=== PATIENT | female | born 1985 | race Caucasian/White ===

== ENCOUNTER 2017-04-26 12:10 | Emergency (ER) | payer BC ==
[~2017-04-26] VITALS: Ht 180.3 cm; Wt 68.9 kg
[~2017-04-26 12:10] MED LIST: AMOX500C3 PO
[2017-04-26 12:17] VITALS: TEMP 36.8; Ht 180.3 cm; Wt 68.9 kg
[2017-04-26] MEDS ORDERED: VLM5CL PO (12:36)
[2017-04-26 12:59] LABS: URINE APPEARANCE CLEAR (CLEAR); URINE BILIRUBIN NEG (NEG); URINE COLOR YELLOW; URINE NITRITE NEG (NEG); URINE PH 6.5 (4.5-7.5); URINE SPECIFIC GRAVITY 1.011 (1.000-1.030); UROBILINOGEN NEG (NEG)
[2017-04-26 13:15] LABS: MANUAL MICROSCOPIC REQUIRED? NO; REVIEW REQ? NO
--- NOTE | 2017-04-26 13:16 | DIAGNOSTIC IMAGING REPORT ---
CHEST ONE VIEW PORTABLE CLINICAL HISTORY: Mood Disorder mental status change COMPARISON STUDY: No previous studies for comparison. FINDINGS: The bones soft tissues and hemidiaphragms are normal. The cardiomediastinal silhouette is normal. The lungs are clear. The pulmonary vasculature is normal. IMPRESSION: Negative chest. Electronically signed by: Venancio Richey M.D. 04/26/2017 1:15 PM Dictated Date/Time: 04/26/2017 1:14 PM
[2017-04-26 13:22] LABS: BASO % 0.2 %; BASO ABS # 0.02 K/uL (0-0.2); COMPLETE YES; EOS % 0.1 %; HEMATOCRIT 40.1 % (37-47); IG% 0.2 %; LYMPH % 21.2 %; LYMPH ABS # 1.86 K/uL (1.2-3.4); MEAN CELL VOLUME 89.3 fL (80-100); MEAN CORPUSCULAR HEMOGLOBIN 30.1 pg (25-34); MEAN CORPUSCULAR HGB CONC 33.7 g/dl (32-36); MEAN PLATELET VOLUME 9.7 fL (7.4-10.4); MONO % 6.6 %; NEUT % 71.7 %; PLATELET COUNT 237 K/uL (130-400); RED BLOOD COUNT 4.49 M/uL (4.2-5.4); WHITE BLOOD COUNT 8.76 K/uL (4.8-10.8)
[2017-04-26 13:25] LABS: BENZODIAZEPINE, URINE POS (NEG); COCAINE,URINE NEG (NEG); PHENCYCLIDINE, URINE NEG (NEG)
[2017-04-26 13:46] LABS: BUN/CREATININE RATIO 10.9 (10-20); CALCIUM 8.9 mg/dl (8.5-10.1); CREATININE 0.7 mg/dl (0.60-1.20); POTASSIUM 4.2 mmol/L (3.5-5.1)
[2017-04-26 13:47] LABS: ACETAMINOPHEN < 2 ug/ml (10-30)
--- NOTE | 2017-04-26 17:10 | EMERGENCY ROOM VISIT NOTE ---
History Report prepared by South: Marlen Oleary Under the Supervision of: Dr. José Miguel Terrell D.O. First contact with patient: 12:42 Chief Complaint: MENTAL HEALTH EVALUATION Stated Complaint: OD History of Present Illness The patient is a 31 year old female who presents to the Emergency Room for a mental health evaluation after an episode of an overdose beginning 1 hour ago. The patient states that her and her had a fight this morning and shortly after he left she took 10mg of Valium and 100mg of Trazodone. She notes that she also had one glass of wine and took the pills with the intent to "not deal with all of the things going on". She states that she was thinking about killing herself and she notes that she has been dealing with her fathers . The patient states that she is prescribed Valium and Trazodone. She took lexapro this morning as normally prescribed. She reports that she sees a therapist once a week but it is not enough and is agreeable to being seen inpatient. Pt denies headache, fevers, chest pain, shortness of breath, nausea, vomiting, diarrhea, and pain with urination. Source of History: patient Onset: 1 hour ago Position: other (mental health) Quality: other (overdose) Timing: other (episode) Associated Symptoms: No fevers, No headache, No chest pain, No SOB, No nausea, No vomiting, No urinary symptoms Note: Pt admits to suicidal ideation. Review of Systems See HPI for pertinent positives & negatives. A total of 10 systems reviewed and were otherwise negative. Past Medical & Surgical Medical Problems: (1) No known allergies (2) No significant past medical history Family History No pertinent family history stated. Social History Smoking Status: Current Every Day Smoker Marital Status: single Housing Status: lives with significant other Occupation Status: employed Current/Historical Medications Scheduled Diazepam (Diazepam), 5 MG PO TID Escitalopram Oxalate (Escitalopram Oxalate), 10 MG PO DAILY Scheduled PRN Ibuprofen (Advil), 200-800 MG PO Q6H PRN for Pain Trazodone Hcl (Trazodone), 50 MG PO DAILY PRN for Anxiety/Agitation Allergies Coded Allergies: No Known Allergies (Unverified , 04/26/17) Physical Exam Vital Signs Date Time Temp Pulse Resp B/P (MAP) Pulse Ox O2 Delivery O2 Flow Rate FiO2 6/25/17 15:42 98 18 110/67 96 Room Air 04/26/17 14:40 83 96 04/26/17 14:30 103/68 04/26/17 14:10 64 97 04/26/17 14:00 100/68 04/26/17 13:40 71 18 96 04/26/17 13:31 103/66 04/26/17 13:10 85 23 98 04/26/17 13:01 108/73 04/26/17 12:40 67 18 97 04/26/17 12:31 118/69 04/26/17 12:30 72 04/26/17 12:17 36.8 72 18 134/83 100 Room Air 04/26/17 12:13 134/83 Physical Exam GENERAL: sitting up in bed, tearful, alert, well appearing, well nourished, no distress, non-toxic EYE EXAM: conjunctival injection, PERRL and EOM's grossly intact OROPHARYNX: no exudate, no erythema, lips, buccal mucosa, and tongue normal and mucous membranes are moist NECK: supple, no nuchal rigidity, no adenopathy, non-tender LUNGS: Clear to auscultation. Normal chest wall mechanics HEART: no murmurs, S1 normal and S2 normal ABDOMEN: abdomen soft, non-tender, normo-active bowel sounds, no masses, no rebound or guarding. BACK: Back is symmetrical on inspection and there is no deformity, no midline tenderness, no CVA tenderness. SKIN: no rashes and no bruising UPPER EXTREMITIES: upper extremities are grossly normal. LOWER EXTREMITIES: No pitting edema. NEURO EXAM: Normal sensorium, cranial nerves II-XII grossly intact, normal speech, no gross weakness of arms, no gross weakness of legs. PSYCH: Admits to depression with suicide attempt. Medical Decision & Procedures ER Provider Diagnostic Interpretation: Radiology results as stated below per my review and the radiologist's interpretation: CHEST ONE VIEW PORTABLE FINDINGS: The bones soft tissues and hemidiaphragms are normal. The cardiomediastinal silhouette is normal. The lungs are clear. The pulmonary vasculature is normal. IMPRESSION: Negative chest. Electronically signed by: Venancio Richey M.D. 04/26/2017 1:15 PM Dictated Date/Time: 04/26/2017 1:14 PM Laboratory Results 04/26/17 13:05 Red Blood Count 4.49, Mean Corpuscular Volume 89.3, Mean Corpuscular Hemoglobin 30.1, Mean Corpuscular Hemoglobin Concent 33.7, Mean Platelet Volume 9.7, Neutrophils (%) (Auto) 71.7, Lymphocytes (%) (Auto) 21.2, Monocytes (%) (Auto) 6.6, Eosinophils (%) (Auto) 0.1, Basophils (%) (Auto) 0.2, Neutrophils # (Auto) 6.27, Lymphocytes # (Auto) 1.86, Monocytes # (Auto) 0.58, Eosinophils # (Auto) 0.01, Basophils # (Auto) 0.02 04/26/17 13:05 Test 04/26/17 12:30 04/26/17 13:05 Urine Color YELLOW Urine Appearance CLEAR (CLEAR) Urine pH 6.5 (4.5-7.5) Urine Specific [place] 1.011 (1.000-1.030) Urine Protein NEG (NEG) Urine Glucose (UA) NEG (NEG) Urine Ketones NEG (NEG) Urine Occult Blood NEG (NEG) Urine Nitrite NEG (NEG) Urine Bilirubin NEG (NEG) Urine Urobilinogen NEG (NEG) Urine Leukocyte Esterase NEG (NEG) Urine Opiates Screen NEG (NEG) Urine Methadone, Qualitative NEG (NEG) Urine Barbiturates NEG (NEG) Urine Phencyclidine (PCP) Level NEG (NEG) Ur Amphetamine/Methamphetamine NEG (NEG) MDMA (Ecstasy) Screen NEG (NEG) Urine Benzodiazepines Screen POS (NEG) Urine Cocaine Metabolite NEG (NEG) Urine Marijuana (THC) NEG (NEG) White Blood Count 8.76 K/uL (4.8-10.8) Red Blood Count 4.49 M/uL (4.2-5.4) Hemoglobin 13.5 g/dL (12.0-16.0) Hematocrit 40.1 % (37-47) Mean Corpuscular Volume 89.3 fL (80-100) Mean Corpuscular Hemoglobin 30.1 pg (25-34) Mean Corpuscular Hemoglobin Concent 33.7 g/dl (32-36) Platelet Count 237 K/uL (130-400) Mean Platelet Volume 9.7 fL (7.4-10.4) Neutrophils (%) (Auto) 71.7 % Lymphocytes (%) (Auto) 21.2 % Monocytes (%) (Auto) 6.6 % Eosinophils (%) (Auto) 0.1 % Basophils (%) (Auto) 0.2 % Neutrophils # (Auto) 6.27 K/uL (1.4-6.5) Lymphocytes # (Auto) 1.86 K/uL (1.2-3.4) Monocytes # (Auto) 0.58 K/uL (0.11-0.59) Eosinophils # (Auto) 0.01 K/uL (0-0.5) Basophils # (Auto) 0.02 K/uL (0-0.2) RDW Standard Deviation 41.3 fL (36.4-46.3) RDW Coefficient of Variation 12.6 % (11.5-14.5) Immature Granulocyte % (Auto) 0.2 % Immature Granulocyte # (Auto) 0.02 K/uL (0.00-0.02) Anion Gap 8.0 mmol/L (3-11) Est Creatinine Clear Calc Drug Dose 129.0 ml/min Estimated GFR () 135.7 Estimated GFR (Non- 117.1 BUN/Creatinine Ratio 10.9 (10-20) Bedside Glucose 78 mg/dl (70-90) Calcium Level 8.9 mg/dl (8.5-10.1) Total Bilirubin 0.5 mg/dl (0.2-1) Direct Bilirubin 0.2 mg/dl (0-0.2) Aspartate Amino Transf (AST/SGOT) 13 U/L (15-37) Alanine Aminotransferase (ALT/SGPT) 16 U/L (12-78) Alkaline Phosphatase 39 U/L (45-117) Total Protein 7.0 gm/dl (6.4-8.2) Albumin 4.1 gm/dl (3.4-5.0) Salicylates Level 2.2 mg/dl (2.8-20) Acetaminophen Level < 2 ug/ml (10-30) Ethyl Alcohol mg/dL 26.0 mg/dl (0-3) Laboratory results per my review. ECG Indication: toxicologic Rate (beats per minute): 65 Rhythm: sinus rhythm Findings: no ectopy, other (normal axis, normal intervals) ED Course ED COURSE: Vital signs were reviewed and showed tachycardia The patients medical record was reviewed The above diagnostic studies were performed and reviewed. ED treatments and interventions as stated above. 1242: The patient was evaluated in room B4. A complete history and physical examination was performed. 1256: I discussed admission with the . 1309: I spoke to [facility] poison control. They report that she should be watched for 4 hours. 1513: I spoke to poison control. The patient is cleared and will be evaluated by case management. 1542: I had a long discussion with the patient. She is agreeable to a 201. 1804: Upon reevaluation, the patient is doing well.I discussed my findings with the patient and she understands and agrees with the treatment plan. The patient will be signed out to Dr. Joseph at change of shift. Medical Decision Differential diagnosis: Etiologies such as toxicologic, infection, hypoglycemia, electrolyte abnormalities, cardiac sources, intracerebral event, neurologic, as well as others were entertained. Medication Reconciliation: I attest that I have personally reviewed the patient' s current medication list. Blood pressure screening: Patient was found to have an elevated blood pressure and was referred to their primary doctor for recheck and further treatment. Patient is a 31-year-old female who presents the ER following taking 10 mg of Valium and 100 mg trazodone. She was hysterical and she notes that she is right worked up secondary to her father's . She has been having trouble dealing with this and multiple other issues. She admits that she took this medication and ordered to harm herself/kill herself. She does see a therapist. She does admitted to a small glass of wine while taking these medications. I discussed her case with poison control. She is medically cleared at 3 PM. Patient is agreeable to come in on a 201. Boyfriend is at bedside. Bed search and will continue and patient was signed out to Dr. Joseph awaiting placement. Impression Primary Impression: Mood disorder Additional Impression: Suicidal ideation Scribe Attestation The scribe's documentation has been prepared under my direction and personally reviewed by me in its entirety. I confirm that the note above accurately reflects all work, treatment, procedures, and medical decision making performed by me. Departure Information Dispostion Still a Patient Referrals No Doctor, Assigned (PCP) Forms HOME CARE DOCUMENTATION FORM, IMPORTANT VISIT INFORMATION Patient Instructions My [facility] Problem Qualifiers
--- NOTE | 2017-04-26 20:50 | EMERGENCY ROOM VISIT NOTE ---
ED Visit Note First contact with patient: 18:08 The mental health worker advise me that the patient was unable to be placed tonight. The patient will stay overnight and bed search will continue tomorrow. The patient is on a voluntary commitment. There is no 302 or petitioning statements. 22:18 the patient decided that she did not want to stay overnight. I spoke with the patient and she is currently not suicidal. The boyfriend is with the patient and will be with her and they both feel comfortable going home. She does see a therapist. She will follow-up with a therapist. She is felt to be stable for discharge.
[2017-04-26 22:29] VITALS: BP 128/76; PULSE 78; O2SAT 98
[2017-04-29 12:38] LABS: HYDROXYETHYLFLURAZEPAM CONF NEGATIVE NG/ML (CUTOFF=50); HYDROXYMIDAZOLAM NEGATIVE NG/ML (CUTOFF=50); HYDROXYTRIAZOLAM CONF NEGATIVE NG/ML (CUTOFF=50); TEMAZEPAM CONF 303 NG/ML (CUTOFF=50)
[2017-07-08] MEDS ORDERED: IBUP-1050 PO (06:43)
[2017-07-08] MEDS ORDERED: TRAZ50TA35 PO (12:36)
[2017-07-08] MEDS ORDERED: LXP10 PO (12:36)
[2017-09-08] MEDS ORDERED: VORT10TA12 PO (12:19)
[2017-09-08] MEDS ORDERED: OXYC1TAB3 PO (15:38)
== END 2017-04-26 22:30 | disposition home or self-care (01) ==
LOC: EDBD 12:10 → C.EDB 12:16 → C.EDA 22:30
DX: F39 Unspecified mood [affective] disorder (principal); R45.851 Suicidal ideations; F17.200 Nicotine dependence, unspecified, uncomplicated

== ENCOUNTER → 2017-05-11 | Outpatient (CLI) | payer BC ==
[~2017-05-11] MED LIST changes: -AMOX500C3 PO; +BIOT1CAP8 PO; +FIBER GUMMY PO; +IBUP-1050 PO; +LXP10 PO; +MULT-513 PO; +OXYC1TAB3 PO; +TRAZ50TA35 PO; +VLM5CL PO
== END | disposition home or self-care (01) ==
LOC: C.LABSPEC 14:14
PROVIDERS: ATTEND Physician Assistant
DX: N89.8 Other specified noninflammatory disorders of vagina (principal)

== ENCOUNTER → 2017-05-26 | Outpatient (CLI) | payer BC | END | disposition home or self-care (01) | LOC: C.LABSPEC 14:55 | PROVIDERS: ATTEND Physician Assistant | DX: A49.02 Methicillin resistant Staphylococcus aureus infection, unspecified site (principal) ==

== ENCOUNTER 2017-07-08 19:03 | Emergency (ER) | payer BC ==
[~2017-07-08] VITALS: Ht 180.3 cm; Wt 71.8 kg
[~2017-07-08 19:03] MED LIST changes: -BIOT1CAP8 PO; -FIBER GUMMY PO; -MULT-513 PO; -OXYC1TAB3 PO
[2017-07-08 19:12] VITALS: TEMP 36.7; Ht 180.3 cm; Wt 71.8 kg
--- NOTE | 2017-07-08 19:22 | EMERGENCY ROOM VISIT NOTE ---
History First contact with patient: 19:13 Chief Complaint: RECTAL PAIN Stated Complaint: EBENEZER-ANAL FISTULA PAIN History of Present Illness The patient is a 32 year old female with significant Hx of perianal abscess and anal fistulas who presents to the Emergency Room with complaints of ebenezer anal pain. Severity 7.5/10. Worse with bowel movements and sitting down. 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 At that time is was lanced by Dr Morris. She works in [employer] but lives in [place] so followed up with a surgeon there - initially without any further intervention but she continued to have pain. She then had a second opinion with Dr Juany Ferrell in [place], [place] and was diagnosed with anal fistula. She reportedly has had multiple surgeries due to fistula formation. Workup for inflammatory bowel disease was negative with colonoscopy. Her last operation for her fistula was in April 2017. For the last month since recovering for that surgery is the best she has been for 2 years. However for the last week her ebenezer -anal pain has been getting progressively worse again to the point where it is now as bad as she was having before her last surgery. Associated with diarrhea which has been making her pain worse. She denies any fevers or chills. She is currently on her period therefore no chance of . Review of Systems Constitutional: No fever, No chills Respiratory: No cough, No shortness of breath Cardiovascular: No chest pain Abdomen: + diarrhea, No pain, No nausea Musculoskeletal: No joint pain, No muscle pain Genitourinary - Female: No dysuria, No urinary frequency, No urinary urgency , No urinary incontinence, No urinary retention Hematologic / Lymphatic: No abnormal bleeding/bruising Integumentary: No rash, No itch Past Medical/Surgical History Medical Problems: (1) No known allergies (2) No significant past medical history Social History Smoking Status: Current Every Day Smoker Marital Status: single Housing Status: lives with significant other Occupation Status: employed Current/Historical Medications Scheduled Biotin (Biotin), 1 TAB PO DAILY Escitalopram Oxalate (Escitalopram Oxalate), 10 MG PO DAILY Multivitamins/Minerals (Mvi With Minerals), 1 TAB PO DAILY [Fiber Gummy], 1 TAB PO DAILY Scheduled PRN Ibuprofen (Advil), 600-800 MG PO Q6H PRN for Pain Oxycodone Ir (Roxicodone Ir), 1-2 TAB PO Q4H PRN for Severe Pain Trazodone Hcl (Trazodone), 50 MG PO DAILY PRN for Sleep Physical Exam Vital Signs Date Time Temp Pulse Resp B/P (MAP) Pulse Ox O2 Delivery O2 Flow Rate FiO2 07/08/17 22:59 62 18 108/62 96 Room Air 07/08/17 21:26 62 18 104/65 93 Room Air 07/08/17 19:12 36.7 82 18 115/79 98 Room Air Physical Exam General Appearance: WD/WN, + moderate distress (from perianal pain) Respiratory/Chest: chest non-tender, lungs clear, normal breath sounds, no respiratory distress, no accessory muscle use Cardiovascular: regular rate, rhythm, no murmur, normal peripheral pulses Abdomen / GI: normal bowel sounds, non tender, soft, + pertinent finding ( rectal area examined with RN as chapnilda, left lateral area 1cm from anal sphincter erythematous and very painful to palpation without discharge, some fluctuance but no definitive collection underneath.) Extremities: normal capillary refill Neurologic/Psych: hospital superintendent II-XII nml as tested (no facial droop), no motor/ sensory deficits (grossly), alert, oriented x 3 Medical Decision & Procedures ER Provider Diagnostic Interpretation: CT OF THE ABDOMEN AND PELVIS WITH CONTRAST CLINICAL HISTORY: Anal/rectal pain. Evaluate for fistula or abscess. COMPARISON STUDY: CT of the pelvis January 29, 2016. TECHNIQUE: Following IV administration of 115 mL of [id number]-[id number], axial images of the abdomen and pelvis were obtained from the lung bases to the proximal femurs. Images were reviewed in the axial, sagittal, and coronal planes. IV contrast was administered without complication. A dose lowering technique was utilized adhering to the principles of ALARA. Oral contrast was administered. CT DOSE: 353.61 mGy.cm FINDINGS: The liver, spleen, adrenal glands, kidneys and pancreas are normal. There is no biliary or pancreatic ductal dilatation. There is no hydronephrosis. Caliber and wall thickness of small and large bowel are normal. The appendix is normal. No abscess is identified within the abdomen or pelvis. There is soft tissue thickening within the left perianal region at site of abscess shown on exam of January 29, 2016. However, no fluid collection is identified on this exam to suggest an abscess. There is a linear tract which extends to the medial fold of the left buttock shown best on axial image 462 of 516. This could reflect a small fistula. There is no associated abscess. Skeletal structures are unremarkable. IMPRESSION: 1. No perianal/perirectal abscess. Left perianal/perineal soft tissue thickening which could reflect a perianal fistula or scarring. Additional linear tract which extends to the medial fold of the left buttock suggests a small fistula. 2. Normal appendix. No bowel obstruction. Electronically signed by: Bran Pendleton M.D. 07/08/2017 10:37 PM Dictated Date/Time: 07/08/2017 10:29 PM Laboratory Results 07/08/17 19:25 Red Blood Count 4.28, Mean Corpuscular Volume 88.8, Mean Corpuscular Hemoglobin 30.4, Mean Corpuscular Hemoglobin Concent 34.2, Mean Platelet Volume 9.7, Neutrophils (%) (Auto) 53.2, Lymphocytes (%) (Auto) 37.5, Monocytes (%) (Auto) 7.7, Eosinophils (%) (Auto) 1.1, Basophils (%) (Auto) 0.4, Neutrophils # (Auto) 3.74, Lymphocytes # (Auto) 2.64, Monocytes # (Auto) 0.54, Eosinophils # (Auto) 0.08, Basophils # (Auto) 0.03 07/08/17 19:25 Test 07/08/17 19:25 White Blood Count 7.04 K/uL (4.8-10.8) Red Blood Count 4.28 M/uL (4.2-5.4) Hemoglobin 13.0 g/dL (12.0-16.0) Hematocrit 38.0 % (37-47) Mean Corpuscular Volume 88.8 fL (80-100) Mean Corpuscular Hemoglobin 30.4 pg (25-34) Mean Corpuscular Hemoglobin Concent 34.2 g/dl (32-36) Platelet Count 234 K/uL (130-400) Mean Platelet Volume 9.7 fL (7.4-10.4) Neutrophils (%) (Auto) 53.2 % Lymphocytes (%) (Auto) 37.5 % Monocytes (%) (Auto) 7.7 % Eosinophils (%) (Auto) 1.1 % Basophils (%) (Auto) 0.4 % Neutrophils # (Auto) 3.74 K/uL (1.4-6.5) Lymphocytes # (Auto) 2.64 K/uL (1.2-3.4) Monocytes # (Auto) 0.54 K/uL (0.11-0.59) Eosinophils # (Auto) 0.08 K/uL (0-0.5) Basophils # (Auto) 0.03 K/uL (0-0.2) RDW Standard Deviation 42.3 fL (36.4-46.3) RDW Coefficient of Variation 13.0 % (11.5-14.5) Immature Granulocyte % (Auto) 0.1 % Immature Granulocyte # (Auto) 0.01 K/uL (0.00-0.02) Anion Gap 8.0 mmol/L (3-11) Est Creatinine Clear Calc Drug Dose 103.3 ml/min Estimated GFR () 100.8 Estimated GFR (Non- 87.0 BUN/Creatinine Ratio 8.7 (10-20) Calcium Level 9.0 mg/dl (8.5-10.1) Total Bilirubin 0.2 mg/dl (0.2-1) Aspartate Amino Transf (AST/SGOT) 17 U/L (15-37) Alanine Aminotransferase (ALT/SGPT) 18 U/L (12-78) Alkaline Phosphatase 44 U/L (45-117) Total Protein 7.3 gm/dl (6.4-8.2) Albumin 4.0 gm/dl (3.4-5.0) Globulin 3.3 gm/dl (2.5-4.0) Albumin/Globulin Ratio 1.2 (0.9-2) Medications Administered Medications (Trade) Dose Ordered Sig/Jewel Route Start Time Stop Time Status Last Admin Dose Admin Sodium Chloride 1,000 ml @ 999 mls/hr Q1H1M IV 07/08/17 19:30 07/08/17 23:51 DC 07/08/17 19:38 999 MLS/HR Hydromorphone HCl (Dilaudid Inj) 0.5 mg NOW STAT IV 07/08/17 19:28 07/08/17 19:29 DC 07/08/17 19:38 0.5 MG Ondansetron HCl (Zofran Inj) 4 mg NOW STAT IV 07/08/17 19:28 07/08/17 19:29 DC 07/08/17 19:37 4 MG Hydromorphone HCl (Dilaudid Inj) 1 mg NOW STAT IV 07/08/17 20:10 07/08/17 20:13 DC 07/08/17 20:24 1 MG Sodium Chloride 1,000 ml @ 150 mls/hr Q6H40M IV 07/08/17 21:00 07/08/17 23:51 DC 07/08/17 21:00 150 MLS/HR Hydromorphone HCl (Dilaudid Inj) 1 mg NOW STAT IV 07/08/17 20:58 07/08/17 21:00 DC 07/08/17 21:22 1 MG Morphine Sulfate (MoRPHine SULFATE INJ) 2 mg STK-MED ONCE .ROUTE 07/08/17 22:03 07/08/17 22:04 DC 07/08/17 22:07 2 MG Morphine Sulfate (MoRPHine SULFATE INJ) 4 mg STK-MED ONCE .ROUTE 07/08/17 22:03 07/08/17 22:04 DC 07/08/17 22:07 4 MG Oxycodone HCl (Roxicodone Immediate Rel 5MG Home Pack) 1 homepack UD ONCE PO 07/08/17 23:15 07/08/17 23:16 DC 07/08/17 23:28 1 HOMEPACK ED Course 19:15 - Discussed case briefly with Dr Titus before seeing patient. Complete history and physical was performed by myself. 20:05 - Patient continued to have pain, worse with bowel movements - Dilaudid 1mg ordered 20:55 - Patient continued to have pain, worse with bowel movements - additional Dilaudid 1mg ordered 21:20 - Discussed case fully with Dr Titus who separately performed history and examination 21:53 - Patient continued to have pain - morphine 6mg IV ordered. 22:35 - Imaging and labs discussed with the patient. She elected for discharge home. Records were given to the patient for follow up with her surgeon in 8 days. Medical Decision Prior records/ancillary studies reviewed. Triage Nursing notes reviewed. Additional history obtained from patient. The patient's history was concerning for rectal pain. Differential diagnosis: Etiologies such as anal fistula, anal fissures, perianal abscess, inflammatory bowel disease, musculoskeletal, disc herniation, as well as others were entertained. Physical findings: As above. Pain consistent with erythema over previous operation site with possible fluctuance. ER treatment provided: Dilaudid 0.5mg, 1mg, 1mg IV Morphine 6mg IV Ondansetron 4mg IV NSS 1L bolus then 150 MLS/HR On reassessment the patient's pain had improved to 5/10 on discharge from maximum of 06/11. Diagnostics interpreted by me: The labs were unremarkable with a normal WBC Imaging studies: CT A/P with IV and oral contrast as above - No perianal/perirectal abscess. This appears to be consistent with previous scarring from operations and likely fistulas causing her pain. Given no fever, normal WBC and no abscess seen on CT she was not started on antibiotics and no blood cultures were taken. The patient informed about the findings as listed above. She was given the option of staying in hospital for intractable pain given amount of opiates given with only minimal relief of pain. However she wished to be discharged home and will control her pain with oxycodone. PDMP was reviewed and revealed no red flags, she did have a recent prescription for tramadol on 06/24/17 however last oxycodone use was 03/28/17 (40 pills prescribed by her surgeon).All questions were answered and she was pleased with the treatment. Return instructions were outlined and the patient was discharged in stable condition. She was given copies of her CT scan for follow up with her surgeon. She was advised to establish care with a primary care physician in the area and call her surgeons office with the results of the CT scan in the morning Outpatient prescription management: Oxy IR 5mg 1-2 po Q4 hrs prn #15 [place] Drug Monitoring Program Search Results: patient reviewed within database, no issues identified Medication Reconcilliation Current Medication List: was personally reviewed by me Blood Pressure Screening Patient's blood pressure: Normal blood pressure Impression Primary Impression: Anal fistula Departure Information Dispostion Home / Self-Care Condition FAIR Prescriptions Oxycodone Ir (Roxicodone Ir) 5 Mg Tab 1-2 TAB PO Q4H Y for Severe Pain, #15 TAB Prov: Carlitos Hylton MD 07/08/17 Referrals No Doctor, Assigned (PCP) Patient Instructions My [facility] Additional Instructions Take Ibuprofen or Tylenol (age and/or weight specific) as needed for pain, discomfort, and fevers. Drink more clear liquids for the next 3 to 4 days. If prescribed a prescription pain medication, take as directed for additional pain relief. Do not drink alcohol or drive while taking prescription pain medication. Make a follow-up appointment with your family doctor for continued care and treatment. Please call your surgeon with the CT report in the morning and arrange follow up as required. If you have an increasing pain, discomfort, fevers, rectal discharge or recurrent vomiting, come back to the Emergency Department. Resident Tracking Resident Involvement: Resident Care Provided Care Provided: Adult ED
[2017-07-08] MEDS ORDERED: HYDROmorphone INJ 0.5 MG/0.5 ML SYR IV STA (19:28)
[2017-07-08] MEDS ORDERED: ONDANSETRON INJ 2 MG/ML 2 ML VIAL IV STA (19:28)
[2017-07-08] MEDS ORDERED: OPTIRAY 320 IV PRN (19:30)
[2017-07-08] MEDS ORDERED: SODIUM CHLORIDE 0.9% 1000ML 1,000 ML IV SCH ×2 (19:30→21:00)
[2017-07-08 19:50] LABS: BASO % 0.4 %; BASO ABS # 0.03 K/uL (0-0.2); COMPLETE YES; EOS % 1.1 %; IG% 0.1 %; LYMPH % 37.5 %; LYMPH ABS # 2.64 K/uL (1.2-3.4); MEAN CELL VOLUME 88.8 fL (80-100); MEAN CORPUSCULAR HEMOGLOBIN 30.4 pg (25-34); MEAN CORPUSCULAR HGB CONC 34.2 g/dl (32-36); MEAN PLATELET VOLUME 9.7 fL (7.4-10.4); MONO % 7.7 %; NEUT % 53.2 %; PLATELET COUNT 234 K/uL (130-400); RED BLOOD COUNT 4.28 M/uL (4.2-5.4); WHITE BLOOD COUNT 7.04 K/uL (4.8-10.8)
[2017-07-08] MEDS ORDERED: MULT-513 PO (19:56)
[2017-07-08] MEDS ORDERED: BIOT1CAP8 PO (19:56)
[2017-07-08] MEDS ORDERED: FIBER GUMMY PO (19:56)
[2017-07-08 20:04] LABS: BUN/CREATININE RATIO 8.7 (10-20); CREATININE 0.89 mg/dl (0.60-1.20); POTASSIUM 3.7 mmol/L (3.5-5.1)
[2017-07-08 20:07] LABS: ALB/GLOB RATIO 1.2 (0.9-2)
[2017-07-08] MEDS ORDERED: HYDROmorphone INJ 1 MG/ML SYR IV STA ×2 (20:10→20:58)
[2017-07-08] MEDS ORDERED: MoRPHine SULFATE 10 MG/ML CARP/VIAL IV STA (21:58)
[2017-07-08] MEDS ORDERED: MoRPHine SULFATE 2 MG/ML CARP ONE (22:03)
[2017-07-08] MEDS ORDERED: MoRPHine SULFATE 4 MG/ML 1 ML CARP\\VIAL ONE (22:03)
--- NOTE | 2017-07-08 22:38 | DIAGNOSTIC IMAGING REPORT ---
CT OF THE ABDOMEN AND PELVIS WITH CONTRAST CLINICAL HISTORY: Anal/rectal pain. Evaluate for fistula or abscess. COMPARISON STUDY: CT of the pelvis January 29, 2016. TECHNIQUE: Following IV administration of 115 mL of [id number]-[id number], axial images of the abdomen and pelvis were obtained from the lung bases to the proximal femurs. Images were reviewed in the axial, sagittal, and coronal planes. IV contrast was administered without complication. A dose lowering technique was utilized adhering to the principles of ALARA. Oral contrast was administered. CT DOSE: 353.61 mGy.cm FINDINGS: The liver, spleen, adrenal glands, kidneys and pancreas are normal. There is no biliary or pancreatic ductal dilatation. There is no hydronephrosis. Caliber and wall thickness of small and large bowel are normal. The appendix is normal. No abscess is identified within the abdomen or pelvis. There is soft tissue thickening within the left perianal region at site of abscess shown on exam of January 29, 2016. However, no fluid collection is identified on this exam to suggest an abscess. There is a linear tract which extends to the medial fold of the left buttock shown best on axial image 462 of 516. This could reflect a small fistula. There is no associated abscess. Skeletal structures are unremarkable. IMPRESSION: 1. No perianal/perirectal abscess. Left perianal/perineal soft tissue thickening which could reflect a perianal fistula or scarring. Additional linear tract which extends to the medial fold of the left buttock suggests a small fistula. 2. Normal appendix. No bowel obstruction. Electronically signed by: Bran Pendleton M.D. 07/08/2017 10:37 PM Dictated Date/Time: 07/08/2017 10:29 PM
[2017-07-08] MEDS ORDERED: OXYC1TAB3 PO (22:58)
[2017-07-08 22:59] VITALS: BP 108/62; PULSE 62; O2SAT 96
--- NOTE | 2017-07-08 23:14 | EMERGENCY ROOM VISIT NOTE ---
ED Visit Note First contact with patient: 19:12 I saw the patient in conjunction with Dr. Hylton, third year resident. The patient presents with rectal pain. 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 She has had multiple surgeries. She presents today with symptoms consistent with a possible new perirectal abscess. Laboratory testing is unrevealing, she is not febrile or toxic. Abdominal and pelvis CT shows a fistula, no obvious abscess seen. The patient received IV pain control, she is more comfortable. She was offered admission/observation for symptom control but she would like to be discharged home. She was given copies of her records and she will follow with her surgeon as an outpatient. If she does have worsening symptoms or fever, she will return for reassessment. Diagnosis: Anal fistula. Severe rectal pain. History of perirectal abscess.
[2017-07-08] MEDS ORDERED: OXYCODONE IR HOME PACK PO ONE (23:15)
== END 2017-07-08 23:30 | disposition home or self-care (01) ==
LOC: C.EDB 19:06 → C.EDC 23:30
DX: K60.3 Anal fistula (principal); F17.200 Nicotine dependence, unspecified, uncomplicated; Z79.899 Other long term (current) drug therapy

== ENCOUNTER → 2017-07-13 | Outpatient (CLI) | payer BC ==
[~2017-07-13] MED LIST changes: +BIOT1CAP8 PO; +FIBER GUMMY PO; +MULT-513 PO; +OXYC1TAB3 PO; -VLM5CL PO
== END | disposition home or self-care (01) ==
LOC: C.PAPS 11:21
PROVIDERS: ATTEND Physician Assistant
DX: Z01.419 Encounter for gynecological examination (general) (routine) without abnormal findings (principal)

== ENCOUNTER 2017-12-06 15:29 | Emergency (ER) | payer BC ==
[~2017-12-06] VITALS: Ht 180.3 cm; Wt 76.1 kg
[~2017-12-06 15:29] MED LIST changes: -FIBER GUMMY PO; -IBUP-1050 PO; +VORT10TA12 PO
[2017-12-06 15:33] VITALS: TEMP 37; Ht 180.3 cm; Wt 76.1 kg
[2017-12-06] MEDS ORDERED: LORAZEPAM 2 MG/ML 1 ML VIAL IV STA (16:20)
[2017-12-06] MEDS ORDERED: HYDR-389 PO (16:21)
--- NOTE | 2017-12-06 16:35 | DIAGNOSTIC IMAGING REPORT ---
CHEST ONE VIEW PORTABLE CLINICAL HISTORY: 32 years-old Female presenting with chest pain. TECHNIQUE: Portable upright AP view of the chest was obtained. COMPARISON: 09/08/2017. FINDINGS: Cardiomediastinal silhouette normal. Lungs and pleural spaces clear. Osseous structures normal. Upper abdomen normal. IMPRESSION: 1. No acute cardiopulmonary disease. Electronically signed by: Trevor Vasquez M.D. 12/06/2017 4:33 PM Dictated Date/Time: 12/06/2017 4:33 PM
--- NOTE | 2017-12-06 16:43 | EMERGENCY ROOM VISIT NOTE ---
History First contact with patient: 16:13 Chief Complaint: CHEST PAIN Stated Complaint: SEVERE CHEST PAIN, L SHOULDER PAIN Nursing Triage Summary: "I thought I was having a panic attack, i took one of my pills and it alleviated my nausea, but I am short of breath, tight in my chest and have shooting pain into my left shoulder". Pt verbalizes she normally feels this way when she has a panic attack. History of Present Illness The patient is a 32 year old female who presents to the Emergency Room via private vehicle with complaints of "severe chest pain, left shoulder pain". The patient states that she has a history of panic attacks, and states that earlier today she was in an argument with her boyfriend, and then developed chest pain which radiates to left shoulder, and shortness of breath. She denies exertional symptoms. She notes that she was laying on the couch when this developed. This began 1.5 hours prior to arrival. She rates the chest pain currently as a 8/10. She states that she has seen her psychiatrist recently and began upon hydroxyzine. She notes that she did have a recent surgery on November 06 which was a fistulotomy. She denies any history of clots, hormone use, recent fracture, hemoptysis. She rates her overall pain currently as an 8/10. Review of Systems A complete 10-point Review of Systems was discussed with the patient, with pertinent positives and negatives listed in the History of Present Illness. All remaining Review of Systems questions can be considered negative unless otherwise specified. Past Medical/Surgical History Medical Problems: (1) No known allergies (2) No significant past medical history Social History Smoking Status: Current Every Day Smoker Marital Status: single Housing Status: lives with significant other Occupation Status: employed Current/Historical Medications Scheduled Escitalopram Oxalate (Escitalopram Oxalate), 20 MG PO DAILY Scheduled PRN Hydroxyzine Hcl (Atarax), 10 MG PO DAILY PRN for Anxiety Oxycodone Ir (Roxicodone Ir), 1-2 TAB PO Q4H PRN for Pain Trazodone Hcl (Trazodone), 50 MG PO DAILY PRN for Sleep Physical Exam Vital Signs Date Time Temp Pulse Resp B/P (MAP) Pulse Ox O2 Delivery O2 Flow Rate FiO2 12/06/17 20:47 77 16 111/73 98 12/06/17 18:07 70 20 119/72 97 12/06/17 17:20 72 20 124/69 100 12/06/17 17:20 100 Room Air 12/06/17 16:59 67 12/06/17 15:33 Room Air 12/06/17 15:33 37.0 100 18 117/81 100 Room Air Physical Exam VITAL SIGNS - Vital signs and nursing notes were reviewed. Stable. GENERAL - 32-year-old female appearing her stated age who is in no acute distress. She does appear anxious. Communicates well with provider and answers questions appropriately. SKIN - Without rashes. HEAD - NC/AT. EYES - PERRL with EOMI bilaterally. Sclera anicteric. EARS - No deformities of external structures noted on gross examination bilaterally. NOSE - Midline and without cyanosis. No epistaxis or purulent drainage noted. MOUTH/OROPHARYNX - Without perioral cyanosis. LUNGS - Chest wall symmetric without accessory muscle use, intercostals retractions, or central cyanosis. Normal vesicular breath sounds CTA B/L. No wheezes, rales, or rhonchi appreciated. CARDIAC - RRR with S1/S2. No murmur, rubs, or gallops appreciated. Anterior chest pain reproducible with palpation. EXTREMITIES - No clubbing or peripheral cyanosis. No pretibial edema present. +5 /5 strength noted in UE/LE bilaterally. NEUROLOGIC - Cranial nerves II through XII grossly intact. Sensory intact to light touch throughout. PSYCH - A&O, and cooperates fully with examiner. Pt is very pleasant and interacts well with examiner. Medical Decision & Procedures ER Provider Diagnostic Interpretation: CHEST ONE VIEW PORTABLE CLINICAL HISTORY: 32 years-old Female presenting with chest pain. TECHNIQUE: Portable upright AP view of the chest was obtained. COMPARISON: 09/08/2017. FINDINGS: Cardiomediastinal silhouette normal. Lungs and pleural spaces clear. Osseous structures normal. Upper abdomen normal. IMPRESSION: 1. No acute cardiopulmonary disease. Electronically signed by: Trevor Vasquez M.D. 12/06/2017 4:33 PM Dictated Date/Time: 12/06/2017 4:33 PM Laboratory Results 12/06/17 16:00 Red Blood Count 4.43, Mean Corpuscular Volume 90.5, Mean Corpuscular Hemoglobin 30.5, Mean Corpuscular Hemoglobin Concent 33.7, Mean Platelet Volume 9.7, Neutrophils (%) (Auto) 39.5, Lymphocytes (%) (Auto) 50.1, Monocytes (%) (Auto) 7.4, Eosinophils (%) (Auto) 2.2, Basophils (%) (Auto) 0.6, Neutrophils # (Auto) 2.57, Lymphocytes # (Auto) 3.25, Monocytes # (Auto) 0.48, Eosinophils # (Auto) 0.14, Basophils # (Auto) 0.04 12/06/17 16:00 Test 12/06/17 16:00 12/06/17 17:00 12/06/17 19:54 White Blood Count 6.49 K/uL (4.8-10.8) Red Blood Count 4.43 M/uL (4.2-5.4) Hemoglobin 13.5 g/dL (12.0-16.0) Hematocrit 40.1 % (37-47) Mean Corpuscular Volume 90.5 fL (80-100) Mean Corpuscular Hemoglobin 30.5 pg (25-34) Mean Corpuscular Hemoglobin Concent 33.7 g/dl (32-36) Platelet Count 233 K/uL (130-400) Mean Platelet Volume 9.7 fL (7.4-10.4) Neutrophils (%) (Auto) 39.5 % Lymphocytes (%) (Auto) 50.1 % Monocytes (%) (Auto) 7.4 % Eosinophils (%) (Auto) 2.2 % Basophils (%) (Auto) 0.6 % Neutrophils # (Auto) 2.57 K/uL (1.4-6.5) Lymphocytes # (Auto) 3.25 K/uL (1.2-3.4) Monocytes # (Auto) 0.48 K/uL (0.11-0.59) Eosinophils # (Auto) 0.14 K/uL (0-0.5) Basophils # (Auto) 0.04 K/uL (0-0.2) RDW Standard Deviation 44.0 fL (36.4-46.3) RDW Coefficient of Variation 13.3 % (11.5-14.5) Immature Granulocyte % (Auto) 0.2 % Immature Granulocyte # (Auto) 0.01 K/uL (0.00-0.02) Prothrombin Time 9.9 SECONDS (9.0-12.0) Prothromb Time International Ratio 0.9 (0.9-1.1) Activated Partial Thromboplast Time 24.6 SECONDS (21.0-31.0) Partial Thromboplastin Ratio 0.9 Anion Gap 4.0 mmol/L (3-11) Est Creatinine Clear Calc Drug Dose 114.9 ml/min Estimated GFR () 114.7 Estimated GFR (Non- 98.9 BUN/Creatinine Ratio 12.8 (10-20) Calcium Level 9.3 mg/dl (8.5-10.1) Thyroid Stimulating Hormone (TSH) 1.870 uIu/ml (0.300-4.500) Urine Color YELLOW Urine Appearance CLEAR (CLEAR) Urine pH >= 9.0 (4.5-7.5) Urine Specific [place] 1.020 (1.000-1.030) Urine Protein NEG (NEG) Urine Glucose (UA) NEG (NEG) Urine Ketones NEG (NEG) Urine Occult Blood NEG (NEG) Urine Nitrite NEG (NEG) Urine Bilirubin NEG (NEG) Urine Urobilinogen NEG (NEG) Urine Leukocyte Esterase NEG (NEG) Urine Test NEG (NEG) Troponin I < 0.015 ng/ml (0-0.045) Medications Administered Medications (Trade) Dose Ordered Sig/Jewel Route Start Time Stop Time Status Last Admin Dose Admin Lorazepam (Ativan Inj) 1 mg NOW STAT IV 12/06/17 16:20 12/06/17 16:22 DC 12/06/17 17:17 1 MG Ketorolac Tromethamine (Toradol Inj) 30 mg NOW STAT IV 12/06/17 17:53 12/06/17 17:54 DC 12/06/17 18:05 30 MG Morphine Sulfate (MoRPHine SULFATE INJ) 4 mg NOW STAT IV 12/06/17 17:53 12/06/17 17:54 DC 12/06/17 18:06 4 MG Morphine Sulfate (MoRPHine SULFATE INJ) 4 mg NOW STAT IV 12/06/17 18:55 12/06/17 18:56 DC 12/06/17 19:19 4 MG Acetaminophen (Tylenol Tab) 650 mg NOW STAT PO 12/06/17 20:10 12/06/17 20:11 DC 12/06/17 20:18 650 MG Medical Decision Patient was seen and evaluated as above. Previous visit was reviewed. I personally treated the patient during her last visit for identical presentation. She is otherwise healthy, but does have recent fistulotomy procedure and underlying anxiety. She is nontoxic on exam. The anterior chest pain is reproducible with palpation of the anterior chest. This is reassuring. It began after an argument with her boyfriend. This seems to be a provoking event for the underlying anxiety. IV access was initiated, and the above workup was performed. During the patient's previous visit I did obtain a d- dimer, and CTA of the chest despite the normal d-dimer secondary to patient presentation. It was normal. Today, the patient is not short of breath upon my exam, and the pain is reproducible therefore I refrained from further workup for the pulmonary embolism as this is less likely. She is hemodynamically stable. Chest x-ray negative. Patient's bedside EKG per my interpretation reveals normal sinus rhythm without ectopy or ischemic change. She was initially given Ativan 1 mg to help control her anxiety. She notes that she felt less anxious but the pain persisted. She was given 4 mg of morphine, and 30 mg of Toradol. She was reevaluated and the pain persisted. She was given 4 mg of morphine. As well as 650 mg of Tylenol. She notes that the pain persists however it is persistently reproducible on exam. Initial and Repeat troponin was negative. CBC reveals no concerning leukocytosis or anemia. Coags are normal. Patient metabolic panel reveals slightly high carbon dioxide otherwise normal. Urine negative. The patient's presentation is most likely that of musculoskeletal etiology/underlying anxiety. I do recommend outpatient follow-up. She appears stable for outpatient management. Case was discussed with the attending physician. They were educated upon management, educated upon worrisome symptoms in which to return, had questions answered prior to discharge, and were discharged home in good condition. In evaluation treatment this patient the following differential diagnoses were obtained: PR, PE, peritonitis, costochondritis, anxiety, muscle strain, among others. Impression Primary Impression: Chest wall pain Departure Information Dispostion Home / Self-Care Condition GOOD Prescriptions Oxycodone Ir (Roxicodone Ir) 5 Mg Tab 1-2 TAB PO Q4H Y for Pain, #15 TAB For Initial Treatment Prov: Christian Francisco PA-C 12/06/17 Referrals Thuan Mederos III, M.D. (PCP) Patient Instructions My [facility] Additional Instructions You have been treated in the Emergency Department your chest wall Pain. Laboratory results and imaging studies have ruled out any emergent causes for your chest wall which would warrant admission or surgery. As we discussed, it is reassuring that the pain is reproducible with pressing the chest is this means it is likely musculoskeletal in nature. You have been prescribed oxycodone immediate release to be used for pain control. This is a narcotic medication. You cannot drive or consume alcohol while on this medicine. This medicine should only be used for pain that cannot be controlled with [id number] pain medicines. For pain control, you can use the following [id number] medicines (if >12 yo): - Regular strength (325mg/tab) Tylenol (acetaminophen) 2 tabs every 4-6 hours as needed. Do not exceed 12 tablets in a 24 hour period. Avoid taking more than 3 grams (3000 mg) of Tylenol per day. This includes any other sources of acetaminophen you may take on a regular basis. - Regular strength (200 mg/tab) Advil (ibuprofen) 1-2 tabs every 4-6 hours as needed. Do not exceed a dose of 3200 mg per day. Drink plenty of water and stay well hydrated. As with any trip to the Emergency Department, you should follow-up with your Primary Care Provider from today's visit. Return to the emergency department if your symptoms persist despite treatment plan outlined above or if the following symptoms occur: Increased pain, worsening shortness of breath, or any new/concerning symptoms.
[2017-12-06 17:10] LABS: HEMATOCRIT 40.1 % (37-47); HEMOGLOBIN 13.5 g/dL (12.0-16.0); MEAN CELL VOLUME 90.5 fL (80-100); MEAN CORPUSCULAR HEMOGLOBIN 30.5 pg (25-34); MEAN CORPUSCULAR HGB CONC 33.7 g/dl (32-36); MEAN PLATELET VOLUME 9.7 fL (7.4-10.4); PLATELET COUNT 233 K/uL (130-400); RED CELL DISTRIBUTION WIDTH CV 13.3 % (11.5-14.5); WHITE BLOOD COUNT 6.49 K/uL (4.8-10.8)
[2017-12-06 17:18] LABS: INR 0.9 (0.9-1.1); PTT PATIENT 24.6 SECONDS (21.0-31.0)
[2017-12-06 17:20] VITALS: O2SAT 100
[2017-12-06 17:28] LABS: BLOOD UREA NITROGEN 10 mg/dl (7-18); CALCIUM 9.3 mg/dl (8.5-10.1); CARBON DIOXIDE 33 mmol/L (21-32); GLUCOSE 86 mg/dl (70-99); POTASSIUM 4.7 mmol/L (3.5-5.1); SODIUM 141 mmol/L (136-145)
[2017-12-06 17:35] LABS: BASO % 0.6 %; BASO ABS # 0.04 K/uL (0-0.2); EOS % 2.2 %; EOS ABS # 0.14 K/uL (0-0.5); IG# 0.01 K/uL (0.00-0.02); LYMPH % 50.1 %; LYMPH ABS # 3.25 K/uL (1.2-3.4); MONO % 7.4 %; MONO ABS # 0.48 K/uL (0.11-0.59); NEUT % 39.5 %; NEUT ABS # 2.57 K/uL (1.4-6.5)
[2017-12-06] MEDS ORDERED: MoRPHine SULFATE 4 MG/ML 1 ML CARP\\VIAL IV STA ×2 (17:53→18:55)
[2017-12-06] MEDS ORDERED: KETOROLAC TROMETHAMINE 30 MG/ML VIAL IV STA (17:53)
[2017-12-06] MEDS ORDERED: ACETAMINOPHEN 325 MG TAB PO STA (20:10)
[2017-12-06] MEDS ORDERED: OXYC1TAB3 PO (20:27)
[2017-12-06 20:47] VITALS: BP 111/73; PULSE 77; O2SAT 98
== END 2017-12-06 20:49 | disposition home or self-care (01) ==
LOC: C.EDB 15:30
DX: R07.89 Other chest pain (principal); F17.210 Nicotine dependence, cigarettes, uncomplicated; Z79.899 Other long term (current) drug therapy